=== PATIENT | male | born 1975 | race Caucasian/White ===

== ENCOUNTER 2016-07-08 11:08 | Emergency (ER) | payer OTHER | END 2016-07-08 11:55 | disposition home or self-care (01) | LOC: ER1 11:08 | DX: L03.116 Cellulitis of left lower limb (principal); F17.210 Nicotine dependence, cigarettes, uncomplicated | CPT/HCPCS: 99282 ==

== ENCOUNTER 2016-07-09 11:01 | Emergency (ER) | payer OTHER | END 2016-07-09 11:50 | disposition home or self-care (01) | LOC: ER1 11:01 | DX: L02.416 Cutaneous abscess of left lower limb (principal); F17.200 Nicotine dependence, unspecified, uncomplicated; Z88.1 Allergy status to other antibiotic agents; Z88.2 Allergy status to sulfonamides | CPT/HCPCS: 10061; 87070; 87205; 99283 ==

== ENCOUNTER 2016-07-11 11:54 | Emergency (ER) | payer OTHER | END 2016-07-11 12:59 | disposition home or self-care (01) | LOC: ER1 11:54 | DX: L02.416 Cutaneous abscess of left lower limb (principal) | CPT/HCPCS: 99282 ==

== ENCOUNTER 2016-07-13 11:03 | Emergency (ER) | payer OTHER | END 2016-07-13 12:35 | disposition home or self-care (01) | LOC: ER1 11:03 | DX: L02.416 Cutaneous abscess of left lower limb (principal); F17.210 Nicotine dependence, cigarettes, uncomplicated | CPT/HCPCS: 99282 ==

== ENCOUNTER 2016-09-02 11:02 | Emergency (ER) | payer OTHER ==
[2016-09-02 11:41] LABS: HEMOGLOBIN 14.7 gm/dl (14.0-17.5); RED BLOOD COUNT 5.12 M/UL (4.20-5.50); WHITE BLOOD COUNT 5.9 K/UL (4.5-11.0)
[2016-09-02 12:09] LABS: BUN/CREATININE RATIO 13 (0-10)
== END 2016-09-02 14:15 | disposition home or self-care (01) ==
LOC: ER1 11:02
PROVIDERS: Emergency Medicine
DX: R00.2 Palpitations (principal); F17.200 Nicotine dependence, unspecified, uncomplicated
CPT/HCPCS: 71010; 80053; 82550; 82553; 83874; 84443; 84484; 85025; 85379; 93005; 93270; 99285

== ENCOUNTER → 2020-07-18 | Outpatient (CLI) | payer OTHER ==
[~2020-07-18] MED LIST: LODINE CAP 300300 MG PO; NORFLEX 100 MG100 MG PO; PREDNISONE50 MG PO
== END ==
LOC: US 14:02
DX: R10.33 Periumbilical pain (principal)
CPT/HCPCS: 76857

== ENCOUNTER 2021-02-20 17:12 | Emergency (ER) | payer OTHER ==
[2021-02-20 21:15] LABS: HEMOGLOBIN 14.9 gm/dl (14.0-17.5); RED BLOOD COUNT 5.32 M/UL (4.20-5.50); WHITE BLOOD COUNT 6.4 K/UL (4.5-11.0)
[2021-02-20 21:31] LABS: BUN/CREATININE RATIO 10 (0-10)
[2021-02-20] MEDS ORDERED: ZOFRAN ODT 4 MG4 MG PO (23:25)
== END 2021-02-20 23:55 | disposition home or self-care (01) ==
LOC: ER1 17:12
PROVIDERS: Physician Assistant
DX: R10.84 Generalized abdominal pain (principal); R07.9 Chest pain, unspecified; K21.9 Gastro-esophageal reflux disease without esophagitis
CPT/HCPCS: 71045; 80053; 81001; 82550; 82553; 83690; 84484; 85025; 87077; 87086; 87186; 93005; 99285; Q9967